=== PATIENT | male | born 1935 | race Caucasian/White ===

== ENCOUNTER 2017-08-21 17:56 | Emergency (ER) | payer MEDICARE, BC ==
[2017-08-21] MEDS: DIPHTH/TET/ACEL PERTUSS (ADULT) 0.5 ML VIAL IM* (21:30)
== END 2017-08-21 21:42 | disposition home or self-care (01) ==
LOC: FTE 17:56
DX: S60.463A Insect bite (nonvenomous) of left middle finger, initial encounter (principal); W57.XXXA Bitten or stung by nonvenomous insect and other nonvenomous arthropods, initial encounter; Y92.9 Unspecified place or not applicable
CPT/HCPCS: 90471; 90715; 99283-25